=== PATIENT | female | born 1990 | race Caucasian/White ===

== ENCOUNTER 2016-11-12 23:52 | Emergency (ER) | payer OTHER ==
[~2016-11-12] VITALS: Ht 170.2 cm; Wt 79.5 kg
[~2016-11-12 23:52] MED LIST: NOMED
[2016-11-12 23:56] VITALS: BP 112/79; PULSE 91; RESP 18; O2SAT 100
--- NOTE | 2016-11-13 00:26 | ED.REPORT ---
HPI-General Illness Date of Service Nov 13, 2016 ED Provider: Dr. Norman Pt is an otherwise healthy 26 year old female with a history of UTIs who presents to the ED complaining of abdominal pain onset 1 week. She c/o associated lumbar back pain, nausea and vomiting. Pt denies dysuria or any other urinary symptoms, fever, chills, and cough with phlegm. She reports that she thinks she "has a kidney infection." She is not currently . The pt admits to smoking. She reports that she works all week and has kids, which prevented her from coming to the ED earlier. Nursing Notes Stated Complaint: NAUSEA/BACK PAIN/POSS KIDNEY INFECTION Chief Complaint: Female Abdominal Pain Nursing Notes Reviewed: Yes Allergies: Coded Allergies: No Known Allergies (Verified Allergy, Unknown, 11/06/14) Scheduled Cefuroxime Axetil (Cefuroxime) 500 Mg Tablet 500 MG PO BID Scheduled PRN Naproxen (Naprosyn) 500 Mg Tablet 500 MG PO BID PRN PRN For Pain Ondansetron ODT (Ondansetron ODT) 8 Mg Tab.rapdis 8 MG PO QID PRN PRN For Nausea Phenazopyridine (Phenazopyridine) 200 Mg Tablet 200 MG PO TID PRN PRN dysuria Miscellaneous Medications No Historical Medication (No Historical Medication) Ea General Time Seen by MD: 00:26 Chief Complaint Abdominal pain Hx Obtained From: Patient Arrived By: Walk-in Sudden in Onset?: No Onset Occurred: 1 week ago Symptom Duration: Since onset Location: : Abdomen: Back Quality: Painful Severity: Current: Moderate Severity: Maximum: Moderate Recent Healthcare: No recent doctor visit, No recent hospitalization Similar Sx Previous: Yes Past Medical History Past Medical History UTIs Denies: Congestive heart failure, Diabetes mellitus Past Surgical History Skin grafts Reports: Tonsillectomy Smoking History Current Every Day Smoker Social History Alcohol Use: Denies alcohol use Drug Use: Denies drug use Other Social History: Lives with children Ambulatory Status Independent Review of Systems Full Review of Systems GI: Reports: Abdominal pain, Nausea, Vomiting Female: Denies: Dysuria, Incontinence, Urinary frequency, Urination decreased Musculoskeletal: Reports: Back pain Complete sys rev & neg: except as marked. Physical Exam Vital Signs Vital Signs Date Time Temp Pulse Resp B/P Pulse Ox O2 Delivery O2 Flow Rate FiO2 11/13/16 01:58 36.4 83 16 98/66 98 Room Air 11/12/16 23:56 36.1 91 18 112/79 100 Room Air Initial VS: Reviewed Head / Eyes: Atraumatic, Normocephalic, PERRL ENT: Mucous membranes moist, Conjunctiva normal, No scleral icterus Neck: Supple, Full range of motion Respiratory: Breath sounds normal, Clear to auscultation, No respiratory distress Cardiovascular: Regular rate & rhythm, Heart sounds normal, Intact distal pulses Extremities: Vascular intact, Neuro intact Skin: Warm, Dry, No cyanosis Neurologic: Alert, Oriented, Nonfocal Psychiatric: Mood/affect normal, Behavior normal General/Constitutional: Awake, Alert, Cooperative Abdomen: Atraumatic, Soft Tenderness/Guarding/Rebound: Positive: Tender suprapubic Interpretation & Diagnostics Lab Results Interpretation Result Diagram: 11/13/16 0105 11/13/16 0105 Test 11/13/16 00:25 11/13/16 01:05 Urine Color Yellow (YELLOW) Urine Appearance Slightly cloudy Urine pH 7.5 (5.0-8.0) Urine Specific [place] 1.015 (1.003-1.035) Urine Protein 100mg/dL (NEG,TRACE) Urine Glucose (UA) Negativemg/dL (NEGATIVE) Urine Ketones Negativemg/dL (NEGATIVE) Urine Occult Blood Large (NEGATIVE) Urine Nitrite Negative (NEGATIVE) Urine Bilirubin Negative (NEGATIVE) Urine Urobilinogen Normalmg/dL (NORMAL) Urine Leukocyte Esterase Small (NEGATIVE) Urine RBC 11-50/hpf (0-2) Urine WBC 11-50/hpf (0-5) Urine Epithelial Cells Few/hpf (NONE-MOD) Urine Crystals None seen (NONE SEEN) Urine Bacteria Moderate/hpf (NONE-FEW) Urine Hyaline Casts None/lpf (NONE) Urine Granular Casts None seen (NONE SEEN) Urine Waxy Casts None seen (NONE SEEN) Urine Red Blood Cell Casts None seen (NONE SEEN) Urine White Blood Cell Casts None seen (NONE SEEN) Urine Mucus Present (None Seen) Urine Trichomonas None seen (NONE SEEN) Urine Yeast None (NONE SEEN) Urinalysis Comment None Urine Culture Reflexed Indicated White Blood Count 11.3th/mm3 (3.8-10.1) Red Blood Count 3.84mil/mm3 (3.90-5.20) Hemoglobin 12.2g/dL (12.0-15.6) Hematocrit 37.1% (35.0-46.0) Mean Corpuscular Volume 96.6fL (81-100) Mean Corpuscular Hemoglobin 31.8pg (27.0-35.0) Mean Corpuscular Hemoglobin Concent 32.9% (32.0-37.0) Red Cell Distribution Width 12.2% (12.3-15.4) Platelet Count 264bil/L (150-400) Neutrophils (%) (Auto) 65.2% (40-74) Lymphocytes (%) (Auto) 24.9% (14-46) Monocytes (%) (Auto) 6.8% (4-12) Eosinophils (%) (Auto) 2.6% (0-5) Basophils (%) (Auto) 0.3% (0-3) Sodium Level 139mEq/L (134-144) Potassium Level 4.2mEq/L (3.5-5.2) Chloride Level 103mEq/L (97-108) Carbon Dioxide Level 22mmol/L (18-29) Blood Urea Nitrogen 12mg/dL (6-20) Creatinine 0.66mg/dL (0.57-1.00) Estimat Glomerular Filtration Rate 156mL/min (>59) Glucose Level 96mg/dL (60-99) Calcium Level 9.2mg/dL (8.5-10.1) Magnesium Level 2.0mg/dL (1.6-2.6) Total Bilirubin 0.2mg/dL (0.0-1.2) Aspartate Amino Transf (AST/SGOT) 20U/L (0-50) Alanine Aminotransferase (ALT/SGPT) 26U/L (0-32) Alkaline Phosphatase 65U/L (25-150) Total Protein 7.1g/dL (6.4-8.4) Albumin 4.6g/dL (3.4-5.0) Lipase 31U/L (13-60) Hold Saab Top Tube Received (Received) Re-Eval/Medical Decision Med Decision/Clinical Course 26-year-old with UTI symptoms radiating to her back. UA positive. No other findings on exam or lab. Begun with Ceftin after Rocephin given here. Discharged in stable condition. Source of Hx: Old records Time of Eval: 00:45 Re-Evaluation/Progress Note: Pt rechecked. Informed pt of plan for discharge. Pt understands and agrees with plan for discharge. F/U instructions and RTER warnings given. All questions addressed. Counseled Regarding: Diagnosis, Lab results, Need for follow-up, When/why to return to ED Discharge & Departure Primary Impression: Urinary tract infection Urinary tract infection type: acute pyelonephritis Qualified Code: N10 - Acute pyelonephritis Disposition: Home Discharge Condition All VS Reviewed: Yes Condition: Stable Patient Instructions: Urinary Tract Infection in Women (ED) Additional Instructions: Drink plenty of fluids and maintain a high urine flow. Begin Ceftin twice daily Pyridium up to three times daily if needed for urinary discomfort Naprosyn twice daily for pain. Follow-up with your doctor in the office. Referrals: Luli Gustafson (PCP) Roddy Attestation Portions of this note were transcribed by Melania Pinon. I, Dr. Norman personally performed the history, physical exam and medical decision-making; I reviewed and confirmed the accuracy of the information in the transcribed note. Signed by: Roddy Lobo, 11/13/16 and 01:25 copies to: Luli Gustafson Christopher W MD Nov 13, 2016 00:26 Melania Cruz Nov 13, 2016 00:38
[2016-11-13] MEDS ORDERED: cefTRIAXone Inj 2,000 MG in Dextrose 5% Minibag Plus 50 ML IV ONE (00:40)
[2016-11-13] MEDS ORDERED: CEFU500T61 PO (00:41)
[2016-11-13] MEDS ORDERED: PHEN-777 PO (00:41)
[2016-11-13] MEDS ORDERED: ONDA8TAB10 PO (00:41)
[2016-11-13 00:42] LABS: APPEARANCE,URINE SLIGHTLY CLOUDY (CLEAR,HAZY); COLOR,URINE YELLOW (YELLOW); OCCULT BLOOD,URINE LARGE (NEGATIVE); PH,URINE 7.5 (5.0-8.0); UROBILINOGEN,URINE NORMAL (NORMAL)
[2016-11-13] MEDS ORDERED: NAPR500T PO (00:42)
[2016-11-13] MEDS ORDERED: 0.9% Sodium Chloride 1,000 ML IV ONE (00:45)
[2016-11-13 01:10] LABS: BASOPHILS % (AUTO) 0.3 % (0-3); EOSINOPHILS % (AUTO) 2.6 % (0-5); MONOCYTES % (AUTO) 6.8 % (4-12); Mean Corpuscular Hemoglobin 31.8 pg (27.0-35.0); Mean Corpuscular Volume 96.6 fL (81-100); NEUTROPHILS % (AUTO) 65.2 % (40-74); Platelet Count 264 bil/L (150-400)
[2016-11-13 01:58] VITALS: BP 98/66; PULSE 83; RESP 16; O2SAT 98
== END 2016-11-13 01:55 | disposition home or self-care (01) ==
LOC: SED 23:52
DX: N10 Acute pyelonephritis (principal); B95.7 Other staphylococcus as the cause of diseases classified elsewhere; M54.5 Low back pain; F17.200 Nicotine dependence, unspecified, uncomplicated; Z87.440 Personal history of urinary (tract) infections
CPT/HCPCS: 36415; 80053; 81000; 81025; 83690; 83735; 85025; 87077; 87086; 87088; 96365; 96375; 99285; J0696; J1885; J7030